=== PATIENT | male | born 1940 | race African-American/Black ===

== ENCOUNTER 2025-02-05 12:34 | Inpatient (IN) | payer OTHER, MEDICARE ==
[~2025-02-05] VITALS: Ht 177.8 cm; Wt 44.5 kg
[2025-02-05 12:38] VITALS: O2SAT 97
[2025-02-05] MEDS: SODIUM CHLORIDE 0.9% 1,000 ML IV ONE ×3 (12:45→19:29)
[2025-02-05 13:17] LABS: BASOPHILS % 0.6 % (0.0-2.0); EOSINOPHILS % 0.1 % (0.0-5.0); HEMATOCRIT. 42.1 % (42.0-52.0); HEMOGLOBIN. 12.6 g/dL (14.0-18.0); LYMPHOCYTES % 11.5 % (20.0-50.0); MEAN CORPUSCULAR HEMOGLOBIN 20.5 pg (28.0-32.0); MEAN CORPUSCULAR HGB CONC 29.8 g/dL (31.0-37.0); MEAN CORPUSCULAR VOLUME 68.6 fL (80.0-94.0); MEAN PLATELET VOLUME 10.7 fl (7.4-10.4); MONOCYTES % 6.5 % (2.0-8.0); NEUTROPHILS % 81.3 % (40.0-76.0); PLATELET 424 x1000/uL (130-400); RED BLOOD CELL COUNT 6.14 mill/uL (4.7-6.1); RED CELL DISTRIBUTION WIDTH 17.2 % (11.6-14.6)
[2025-02-05 13:22] LABS: ADD RBC MORPHOLOGY YES; DIFFERENTIAL COMMENT 1
[2025-02-05 13:27] LABS: CHLORIDE 125 mEq/L (98-107); POTASSIUM 5.2 mEq/L (3.5-5.1)
[2025-02-05 13:28] LABS: CALCIUM 11.8 mg/dL (8.7-10.4); CARBON DIOXIDE 25 mEq/L (21-32)
[2025-02-05 13:33] LABS: GLUCOSE 125 mg/dL (70-105)
[2025-02-05 13:34] LABS: AMMONIA < 17 uMol/L (<32)
[2025-02-05 13:35] LABS: CREATINE KINASE 272 IU/L (46-171)
[2025-02-05 13:58] LABS: SODIUM 166 mEq/L (136-145); UREA NITROGEN BLOOD 110 mg/dL (9-23)
[2025-02-05 13:59] LABS: CREATININE 5.1 mg/dL (0.6-1.3); TROPONIN I HIGH SENSITIVITY 77 ng/L (3.0-53)
[2025-02-05 15:00] LABS: HYPOCHROMASIA 1+
[2025-02-05 15:01] LABS: MICROCYTOSIS 1+; PLATELET ESTIMATE SLIGHTLY INCREASED
[2025-02-05 15:02] LABS: ANISOCYTOSIS 1+
[2025-02-05 15:06] LABS: CLARITY URINE TURBID (CLEAR); COLOR URINE YELLOW (YELLOW); GLUCOSE URINE NEGATIVE (NEGATIVE); KETONES URINE TRACE (NEGATIVE); LEUKOCYTE ESTERASE URINE 3+ (NEGATIVE); NITRITE URINE NEGATIVE (NEGATIVE); OCCULT BLOOD URINE 2+ (NEGATIVE); PH URINE 5.5 (4.5-8.0); PROTEIN URINE 2+ (NEGATIVE); SPECIFIC GRAVITY URINE 1.017 (1.005-1.030); UROBILINOGEN URINE 0.2 E.U./dL (0.2-1.0)
[2025-02-05 15:21] LABS: BACTERIA URINE 4+; SQUAMOUS EPITHELIAL CELL URINE 2+ /lpf (RARE/1+); WBC URINE TNTC /hpf (0-2); YEAST URINE NONE SEEN
[2025-02-05] MEDS ORDERED: CEFTRIAXONE 2GM/50ML 50 ML IV ONE (16:30)
[2025-02-05] MEDS: CEFTRIAXONE 2GM/50ML 50 ML IV NR (18:03)
[2025-02-05] MEDS ORDERED: IPRATROPIUM/ALBUTEROL 0.5-3(2.5)MG/3ML NEB HHN PRN (22:30)
[2025-02-05] MEDS ORDERED: GUAIFENESIN 200MG/10ML SUGAR FREE UDC PO PRN (22:30)
[2025-02-05] MEDS ORDERED: MAGNESIUM/ALUMINUM HYDROXIDE/SIMETHICONE 30ML UDC PO PRN (22:30)
[2025-02-05] MEDS ORDERED: CLONIDINE 0.1MG TABLET PO PRN (22:30)
[2025-02-05] MEDS ORDERED: ACETAMINOPHEN 325MG TABLET PO PRN ×2 (22:30)
[2025-02-05] MEDS ORDERED: ONDANSETRON HCL 4MG/2ML INJ IV PRN (22:30)
[2025-02-05] MEDS ORDERED: DOCUSATE SODIUM 100MG CAPSULE PO PRN (22:30)
[2025-02-05] MEDS: DEXTROSE 5% WATER 1,000 ML IV SCH (22:53)
[2025-02-05 23:52] LABS: IRON 29 ug/dL (65-175)
[2025-02-05 23:55] LABS: PREALBUMIN 15.2 mg/dl (10.0-40.0); TOTAL IRON BINDING CAPACITY 368 ug/dl (250-425)
[2025-02-06 07:17] LABS: BASOPHILS % 0.5 % (0.0-2.0); HEMATOCRIT. 31.6 % (42.0-52.0); HEMOGLOBIN. 9.4 g/dL (14.0-18.0); LYMPHOCYTES % 13.4 % (20.0-50.0); MEAN CORPUSCULAR HEMOGLOBIN 20.5 pg (28.0-32.0); MEAN CORPUSCULAR HGB CONC 29.6 g/dL (31.0-37.0); MEAN CORPUSCULAR VOLUME 69.1 fL (80.0-94.0); MEAN PLATELET VOLUME 10.1 fl (7.4-10.4); MONOCYTES % 5.5 % (2.0-8.0); NEUTROPHILS % 79.6 % (40.0-76.0); PLATELET 273 x1000/uL (130-400); RED BLOOD CELL COUNT 4.58 mill/uL (4.7-6.1); RED CELL DISTRIBUTION WIDTH 16.6 % (11.6-14.6); WHITE BLOOD COUNT 21.2 x1000/uL (4.5-11.0)
[2025-02-06 07:20] LABS: DIFFERENTIAL COMMENT 1
[2025-02-06 07:21] LABS: ADD RBC MORPHOLOGY NO
[2025-02-06 07:30] LABS: CARBON DIOXIDE 22 mEq/L (21-32); CHLORIDE 128 mEq/L (98-107); POTASSIUM 3.8 mEq/L (3.5-5.1)
[2025-02-06 07:33] LABS: SODIUM 166 mEq/L (136-145)
[2025-02-06 07:35] LABS: CREATININE 4.6 mg/dL (0.6-1.3)
[2025-02-06 07:36] LABS: ALANINE AMINOTRANSFERASE 26 IU/L (10-49); ALBUMIN 3.4 g/dL (3.2-4.8); ASPARTATE AMINOTRANSFERASE 26 IU/L (<34); BILIRUBIN DIRECT 0.2 mg/dL (<=3.0); BILIRUBIN TOTAL 0.5 mg/dL (0.1-1.0); GLUCOSE 126 mg/dL (70-105); PROTEIN TOTAL 6.9 g/dL (6.0-8.3); TRIGLYCERIDE 86 mg/dL (0-150)
[2025-02-06 07:37] LABS: ALBUMIN 3.3 g/dL (3.2-4.8); CREATINE KINASE 308 IU/L (46-171); LDL CHOLESTEROL 67 mg/dL (5-100)
[2025-02-06 07:38] LABS: CHOLESTEROL 128 mg/dL (<200); HDL CHOLESTEROL 34 mg/dL (>55)
[2025-02-06 07:39] LABS: T4 FREE 3.58 ng/dL (0.89-1.76)
[2025-02-06 07:40] LABS: THYROID STIMULATING HORMONE < 0.10 uIU/mL (0.55-4.78)
[2025-02-06 08:38] LABS: TROPONIN I HIGH SENSITIVITY 78 ng/L (3.0-53)
[2025-02-06 08:39] LABS: UREA NITROGEN BLOOD 113 mg/dL (9-23)
[2025-02-06 09:15] VITALS: BP 153/71; PULSE 109; RESP 16; TEMP 36.3; O2SAT 97
[2025-02-06 12:00] VITALS: BP 158/78; PULSE 99; RESP 18; TEMP 36.1; O2SAT 98
[2025-02-06] MEDS: PANTOPRAZOLE SODIUM 40 MG/VIAL IV SCH (15:32)
[2025-02-06] MEDS: TAMSULOSIN HCL 0.4MG SR CAPSULE PO SCH (15:39)
[2025-02-06] MEDS: PIPERACILLIN/TAZO 3.375G/50ML 50 ML IV SCH (15:40)
[2025-02-06] MEDS: ENOXAPARIN 30MG/0.3ML SYR SUBCUT SCH (15:41)
[2025-02-06 16:00] VITALS: BP 155/65; PULSE 108; RESP 20; TEMP 36.5; O2SAT 100
[2025-02-06] MEDS ORDERED: VANCOMYCIN 1.5GM/250ML IV NR (16:00)
[2025-02-06 17:47] LABS: URIC ACID 10.3 mg/dL (3.7-9.2)
[2025-02-06 17:52] LABS: CREATINE KINASE 351 IU/L (46-171)
[2025-02-06 18:00] LABS: TROPONIN I HIGH SENSITIVITY 76 ng/L (3.0-53)
[2025-02-06] MEDS ORDERED: CEFTRIAXONE 1GM/50ML 50 ML IV SCH ×2 (18:00)
[2025-02-06 20:00] VITALS: BP 162/68; PULSE 119; RESP 18; TEMP 36.2; O2SAT 100
[2025-02-06 20:30] VITALS: BP 158/80
[2025-02-06 22:35] VITALS: BP 158/80; PULSE 119; RESP 18; TEMP 36.2
[2025-02-07] VITALS: BP 157/72; PULSE 112; RESP 19; TEMP 36.4; O2SAT 98
[2025-02-07 04:00] VITALS: BP 149/69; PULSE 111; RESP 20; TEMP 36.2; O2SAT 98
[2025-02-07] MEDS: FERROUS SULFATE 325MG TABLET PO SCH (08:10)
[2025-02-07 08:59] VITALS: BP 165/79; PULSE 118; RESP 18; TEMP 37.1; O2SAT 100
[2025-02-07 11:15] LABS: BASOPHILS % 0.8 % (0.0-2.0); HEMATOCRIT. 35.4 % (42.0-52.0); HEMOGLOBIN. 10.5 g/dL (14.0-18.0); LYMPHOCYTES % 14.6 % (20.0-50.0); MEAN CORPUSCULAR HEMOGLOBIN 20.3 pg (28.0-32.0); MEAN CORPUSCULAR HGB CONC 29.7 g/dL (31.0-37.0); MEAN CORPUSCULAR VOLUME 68.3 fL (80.0-94.0); MEAN PLATELET VOLUME 11.5 fl (7.4-10.4); MONOCYTES % 5.5 % (2.0-8.0); NEUTROPHILS % 78.1 % (40.0-76.0); PLATELET 252 x1000/uL (130-400); RED BLOOD CELL COUNT 5.18 mill/uL (4.7-6.1); RED CELL DISTRIBUTION WIDTH 17.3 % (11.6-14.6); WHITE BLOOD COUNT 19.7 x1000/uL (4.5-11.0)
[2025-02-07 11:35] LABS: POTASSIUM 4.7 mEq/L (3.5-5.1)
[2025-02-07 11:36] LABS: CALCIUM 10.6 mg/dL (8.7-10.4)
[2025-02-07 11:40] LABS: CREATININE 4.4 mg/dL (0.6-1.3)
[2025-02-07 11:41] LABS: DIFFERENTIAL COMMENT 1
[2025-02-07] MEDS: VANCOMYCIN 750MG/150ML (BAXTER) IV NR (12:00)
[2025-02-07 12:33] VITALS: BP 107/76; PULSE 106; RESP 18; TEMP 36.1
[2025-02-07] MEDS: DEXTROSE 5% WATER 1,000 ML IV SCH (14:36)
[2025-02-07 17:00] VITALS: BP 141/74; PULSE 117; RESP 18; TEMP 37; O2SAT 100
[2025-02-07 17:16] LABS: POTASSIUM 3.9 mEq/L (3.5-5.1)
[2025-02-07 17:18] LABS: CALCIUM 10.5 mg/dL (8.7-10.4)
[2025-02-07 17:22] LABS: CREATININE 4.7 mg/dL (0.6-1.3)
[2025-02-07 17:28] LABS: T4 FREE 3.17 ng/dL (0.89-1.76)
[2025-02-07 17:29] LABS: THYROID STIMULATING HORMONE < 0.10 uIU/mL (0.55-4.78)
[2025-02-07] MEDS: ACETAMINOPHEN 1000MG/100ML 100 ML IV NR (17:57)
[2025-02-07] MEDS ORDERED: METHIMAZOLE 5MG TABLET PO NR (18:00)
[2025-02-07] MEDS: DEXT 5%/0.45% NACL 1000ML 1,000 ML IV SCH (19:01)
[2025-02-07 20:00] VITALS: BP 148/71; PULSE 116; RESP 20; TEMP 36.8; O2SAT 95
[2025-02-07] MEDS: METHIMAZOLE 10MG TABLET PO NR (23:15)
[2025-02-08] VITALS: BP 145/80; PULSE 109; RESP 19; TEMP 36.6; O2SAT 100
[2025-02-08 04:00] VITALS: BP 148/78; PULSE 74; RESP 20; TEMP 36.5; O2SAT 99
[2025-02-08 06:47] LABS: INR 1.1
[2025-02-08 06:53] LABS: CARBON DIOXIDE 22 mEq/L (21-32); CHLORIDE 134 mEq/L (98-107); POTASSIUM 4.1 mEq/L (3.5-5.1)
[2025-02-08 06:54] LABS: CALCIUM 10.3 mg/dL (8.7-10.4)
[2025-02-08 06:58] LABS: CORTISOL 18.4 ucg/dL
[2025-02-08 06:59] LABS: BASOPHILS % 0.7 % (0.0-2.0); EOSINOPHILS % 2.5 % (0.0-5.0); GLUCOSE 145 mg/dL (70-105); HEMOGLOBIN. 8.4 g/dL (14.0-18.0); MEAN CORPUSCULAR HEMOGLOBIN 20.7 pg (28.0-32.0); MEAN CORPUSCULAR VOLUME 68.9 fL (80.0-94.0); MEAN PLATELET VOLUME 11.7 fl (7.4-10.4); MONOCYTES % 6.1 % (2.0-8.0); NEUTROPHILS % 74.7 % (40.0-76.0); PLATELET 207 x1000/uL (130-400); RED BLOOD CELL COUNT 4.06 mill/uL (4.7-6.1); RED CELL DISTRIBUTION WIDTH 17.3 % (11.6-14.6); WHITE BLOOD COUNT 17.6 x1000/uL (4.5-11.0)
[2025-02-08 07:01] LABS: PHOSPHORUS 5.9 mg/dL (2.5-4.9)
[2025-02-08 07:02] LABS: PREALBUMIN 7.8 mg/dl (10.0-40.0)
[2025-02-08 07:03] LABS: FOLIC ACID (FOLATE) SERUM > 20.00 ng/mL (>5.38)
[2025-02-08 07:04] LABS: VITAMIN B12 SERUM 763 pg/mL (211-911)
[2025-02-08 07:59] LABS: DIFFERENTIAL COMMENT 1
[2025-02-08 08:09] VITALS: BP 136/60; PULSE 68; RESP 18; TEMP 36.4; O2SAT 93
[2025-02-08] MEDS ORDERED: METHIMAZOLE 5MG TABLET PO SCH (09:00)
[2025-02-08] MEDS: METHIMAZOLE 5MG TABLET PO SCH (09:00)
[2025-02-08 09:20] LABS: SODIUM 172 mEq/L (136-145)
[2025-02-08 09:21] LABS: CREATININE 5.1 mg/dL (0.6-1.3); UREA NITROGEN BLOOD 136 mg/dL (9-23)
[2025-02-08] MEDS: FAMOTIDINE 20MG/2ML VIAL IV SCH (09:49)
[2025-02-08 12:11] VITALS: BP 152/61; PULSE 109; RESP 20; TEMP 36.5; O2SAT 98
[2025-02-08 13:08] LABS: *CREATININE RANDOM URINE 95.5 mg/dL (Not Estab.); MICROALBUMIN RANDOM URINE 110.1 ug/mL (Not Estab.)
[2025-02-08] MEDS ORDERED: LORAZEPAM 0.5MG TABLET PO NR (14:30)
[2025-02-08 16:16] VITALS: BP 152/71; PULSE 109; RESP 20; TEMP 36.7; O2SAT 100
[2025-02-08 20:00] VITALS: BP 100/67; PULSE 109; RESP 18; TEMP 36.2; O2SAT 100
[2025-02-08] MEDS: VANCOMYCIN 750MG/150ML (BAXTER) IV NR (21:14)
[2025-02-08 22:26] LABS: HEPATITIS B SURFACE ANTIGEN NEGATIVE (Negative)
[2025-02-08 22:47] LABS: HEPATITIS A AB IGM NEGATIVE (Negative); HEPATITIS B CORE AB IGM NEGATIVE (Negative)
[2025-02-08 22:48] LABS: HEPATITIS C AB NON REACTIVE (Neg) (Negative)
[2025-02-09] VITALS (15 sets, daily range): BP systolic 87–158; BP diastolic 50–86; PULSE 95–124; RESP 17–20; TEMP 36–37.1; O2SAT 95–99
[2025-02-09 06:18] LABS: BASOPHILS % 0.4 % (0.0-2.0); EOSINOPHILS % 4.9 % (0.0-5.0); HEMATOCRIT. 26.2 % (42.0-52.0); HEMOGLOBIN. 7.6 g/dL (14.0-18.0); LYMPHOCYTES % 24.3 % (20.0-50.0); MEAN CORPUSCULAR HEMOGLOBIN 20.2 pg (28.0-32.0); MEAN CORPUSCULAR VOLUME 69.8 fL (80.0-94.0); MEAN PLATELET VOLUME 11.3 fl (7.4-10.4); MONOCYTES % 7.5 % (2.0-8.0); NEUTROPHILS % 62.9 % (40.0-76.0); PLATELET 191 x1000/uL (130-400); RED BLOOD CELL COUNT 3.76 mill/uL (4.7-6.1); RED CELL DISTRIBUTION WIDTH 17.1 % (11.6-14.6); WHITE BLOOD COUNT 11.8 x1000/uL (4.5-11.0)
[2025-02-09 06:27] LABS: ADD RBC MORPHOLOGY NO; DIFFERENTIAL COMMENT 1
[2025-02-09 06:28] LABS: CALCIUM 10.1 mg/dL (8.7-10.4); CARBON DIOXIDE 22 mEq/L (21-32); CHLORIDE 137 mEq/L (98-107); POTASSIUM 3.5 mEq/L (3.5-5.1)
[2025-02-09 06:34] LABS: CREATININE 4.3 mg/dL (0.6-1.3); GLUCOSE 121 mg/dL (70-105)
[2025-02-09 06:37] LABS: PHOSPHORUS 4.5 mg/dL (2.5-4.9)
[2025-02-09 08:19] LABS: SODIUM 176 mEq/L (136-145); UREA NITROGEN BLOOD 116 mg/dL (9-23)
[2025-02-09] MEDS ORDERED: LIDOCAINE HCL 1% 10 MG/ML 10ML VIAL ONE (08:55)
[2025-02-09] MEDS: DEXTROSE 5% WATER 1,000 ML IV SCH (15:35)
[2025-02-09] MEDS: DILTIAZEM HCL 5MG/ML 5ML VIAL IV NR (18:30)
[2025-02-09] MEDS ORDERED: SODIUM CHLORIDE 3% FOR INH 4ML NEB INH NR (21:00)
[2025-02-09 21:26] LABS: TROPONIN I HIGH SENSITIVITY 151 ng/L (3.0-53)
[2025-02-09 22:39] LABS: POTASSIUM 3.2 mEq/L (3.5-5.1)
[2025-02-09 22:46] LABS: CREATININE 2.5 mg/dL (0.6-1.3)
== END 2025-02-09 22:15 | DRG 871 ==
LOC: ER 12:34 → 7WST 16:21 → EDBEDREQTM 16:22 → EDBEDREQ 16:22 → MICUSO 02-09 21:59
PROVIDERS: ADMIT Internal Medicine; ATTEND Internal Medicine
PROC: 02HV33Z Insertion of Infusion Device into Superior Vena Cava, Percutaneous Approach (ICD-10-PCS; principal; 2025-02-09)
PROC: B5181ZA Fluoroscopy of Superior Vena Cava using Low Osmolar Contrast, Guidance (ICD-10-PCS; 2025-02-09)
PROC: B548ZZA Ultrasonography of Superior Vena Cava, Guidance (ICD-10-PCS; 2025-02-09)
PROC: 5A12012 Performance of Cardiac Output, Single, Manual (ICD-10-PCS; 2025-02-09)
PROC: 5A09357 Assistance with Respiratory Ventilation, Less than 24 Consecutive Hours, Continuous Positive Airway Pressure (ICD-10-PCS; 2025-02-09)
PROC: 5A1D70Z Performance of Urinary Filtration, Intermittent, Less than 6 Hours Per Day (ICD-10-PCS; 2025-02-09)
PROC: 0BH17EZ Insertion of Endotracheal Airway into Trachea, Via Natural or Artificial Opening (ICD-10-PCS; 2025-02-09)
DX: A41.9 Sepsis, unspecified organism (principal); G92.8 Other toxic encephalopathy; I21.A1 Myocardial infarction type 2; E46 Unspecified protein-calorie malnutrition; N17.9 Acute kidney failure, unspecified; E87.0 Hyperosmolality and hypernatremia; E87.20 Acidosis, unspecified; M62.82 Rhabdomyolysis; Z68.1 Body mass index [BMI] 19.9 or less, adult; I46.9 Cardiac arrest, cause unspecified; I49.01 Ventricular fibrillation; E86.0 Dehydration; D50.9 Iron deficiency anemia, unspecified; E05.90 Thyrotoxicosis, unspecified without thyrotoxic crisis or storm; E83.41 Hypermagnesemia; E83.52 Hypercalcemia; E87.5 Hyperkalemia; E87.8 Other disorders of electrolyte and fluid balance, not elsewhere classified; N30.91 Cystitis, unspecified with hematuria; R62.7 Adult failure to thrive; I12.9 Hypertensive chronic kidney disease with stage 1 through stage 4 chronic kidney disease, or unspecified chronic kidney disease; F17.210 Nicotine dependence, cigarettes, uncomplicated; J44.9 Chronic obstructive pulmonary disease, unspecified; N40.0 Benign prostatic hyperplasia without lower urinary tract symptoms; R13.11 Dysphagia, oral phase; N18.9 Chronic kidney disease, unspecified; Z87.440 Personal history of urinary (tract) infections
CPT/HCPCS: 31500; 31720; 36415; 36556; 70490; 70551; 71045; 76770; 77001; 80048; 80061; 80076; 80202; 81003; 82040; 82043; 82140; 82306; 82330; 82533; 82550; 82570; 82607; 82728; 82746; 82962; 83036; 83520; 83540; 83550; 83605; 83735; 83880; 83930; 83970; 84100; 84134; 84145; 84295; 84300; 84439; 84443; 84481; 84484; 84550; 85025; 85044; 86376; 86705; 86709; 87340; 90935; 92610; 92950; 93005; 94660; 97116; 97162; 97166; 99291; A4606; C1752; C1887; C1893; J0696; J1642; J1650; J2003; J2470; J2543; J3370; J3490; J7030; J7070; J0131